=== PATIENT | female | born 1965 | race Caucasian/White ===

== ENCOUNTER 2020-08-05 09:04 | Outpatient (REF) | payer OTHER, SELFPAY ==
--- NOTE | ~2020-08-05 | CT_ITS ---
EXAMINATION: CT SINUS WITHOUT CONTRAST CLINICAL INFORMATION: Anosmia. COMPARISON: None TECHNIQUE: 2 mm thin axial and 2 mm coronal and sagittal images of maxillofacial bones/sinuses were obtained. This CT examination was performed using dose optimization techniques as appropriate, variously including the following: *Automated exposure control *Adjustment of mA and/or kV according to patient size (this includes techniques or standardized protocols for targeted exams where dose is matched to indication/reason for exam; i.e. extremities or head) *Use of iterative reconstruction technique DLP: 125 mGy-cm FINDINGS: There is normal aeration of bilateral frontal, ethmoid, maxillary and sphenoid sinuses without any air-fluid levels or mucoperiosteal thickening. Bilateral ostiomeatal complex and frontoethmoidal recesses are widely patent. The olfactory grooves are symmetrical bilaterally measuring 6 mm in depth. The cribriform plate and the kenrick moose are normal. No bony abnormality seen involving the roof of bilateral frontal and ethmoid sinuses. NASAL CAVITY/NASOPHARYNX: The nasal cavity is clear. There is no nasal septal deviation/spurring. The nasopharynx is symmetric. ADDITIONAL RELEVANT FINDINGS: No periapical disease is seen. The TMJs articulate normally. The orbits and skull base soft tissues are unremarkable. The middle ear cavities and mastoid air cells are clear. Limited evaluation demonstrates no acute intracranial findings. CT/CT sinus wo con IMPRESSION: Essentially unremarkable CT sinus exam.
== END 2020-08-05 09:05 | disposition home or self-care (01) ==
LOC: HO.CT 09:04
PROVIDERS: PCP Internal Medicine; Visit Provider Otolaryngology
DX: R43.0 Anosmia (principal)
CPT/HCPCS: 70486

== ENCOUNTER 2021-10-03 08:00 | Outpatient (REF) | payer OTHER, SELFPAY ==
--- NOTE | ~2021-10-03 | XR_ITS ---
EXAMINATION: XR KNEES, STANDING AP XR KNEE, RIGHT CLINICAL INFORMATION: Knee pain. COMPARISON: Standing AP knees 12/04/2018 and 10/20/2012; radiographs left knee 12/04/2018, 01/07/2013, 10/20/2012, 12/16/2010 TECHNIQUE: Standing AP knees is performed along with lateral and axial patella views of the right knee. FINDINGS: Right: Normal bony mineralization. No fracture, dislocation, destructive process. There is moderate suprapatellar effusion. No joint narrowing or erosive change or chondrocalcinosis. There is mild narrowing lateral patellofemoral joint with borderline lateral tilting. Left: There are old posttraumatic and postsurgical changes proximal tibia. Hardware has been previously removed. There is no acute fracture or destructive process. There are degenerative changes medial lateral knee joint compartments with borderline joint narrowing and marginal osteophytes from the femoral condyle and tibial plateau. There is no erosive change or chondrocalcinosis. XR/XR knee standing BI IMPRESSION: Right: -Moderate suprapatellar effusion. -Mild narrowing lateral patellofemoral joint with borderline lateral tilting. Left: -Old posttraumatic and postsurgical changes. Hardware previously removed. -Degenerative changes medial lateral compartments with marginal osteophytes and borderline joint narrowing.
--- NOTE | ~2021-10-03 | US_ITS ---
EXAMINATION: US VENOUS ULTRASOUND WITH DOPPLER LOWER EXTREMITY, RIGHT CLINICAL INFORMATION: Pain COMPARISON: None TECHNIQUE: Ultrasound of the deep veins is performed from the hip to the calf with compression sonography and color and pulse Doppler assessment. Spectral analysis with color-flow imaging is performed. FINDINGS: There is normal venous compression and respiratory variation and augmented flow. The visualized common femoral vein, superficial femoral vein, profunda femoral vein, popliteal vein, and the trifurcation region shows no evidence of deep venous thrombosis. There is a 3.5 x 1.1 x 2.6 cm Luz's cyst. There is a separate fluid collection seen in the medial calf measuring 4.2 x 2 x 4.1 cm questionable for a ruptured Luz's cyst. US/US venous duplex LE RT IMPRESSION: No DVT demonstrated in the right lower extremity. Luz's cyst.
--- NOTE | ~2021-10-03 | XR_ITS ---
EXAMINATION: XR KNEES, STANDING AP XR KNEE, RIGHT CLINICAL INFORMATION: Knee pain. COMPARISON: Standing AP knees 12/04/2018 and 10/20/2012; radiographs left knee 12/04/2018, 01/07/2013, 10/20/2012, 12/16/2010 TECHNIQUE: Standing AP knees is performed along with lateral and axial patella views of the right knee. FINDINGS: Right: Normal bony mineralization. No fracture, dislocation, destructive process. There is moderate suprapatellar effusion. No joint narrowing or erosive change or chondrocalcinosis. There is mild narrowing lateral patellofemoral joint with borderline lateral tilting. Left: There are old posttraumatic and postsurgical changes proximal tibia. Hardware has been previously removed. There is no acute fracture or destructive process. There are degenerative changes medial lateral knee joint compartments with borderline joint narrowing and marginal osteophytes from the femoral condyle and tibial plateau. There is no erosive change or chondrocalcinosis. XR/XR knee RT 2V IMPRESSION: Right: -Moderate suprapatellar effusion. -Mild narrowing lateral patellofemoral joint with borderline lateral tilting. Left: -Old posttraumatic and postsurgical changes. Hardware previously removed. -Degenerative changes medial lateral compartments with marginal osteophytes and borderline joint narrowing.
== END 2021-10-03 08:01 | disposition home or self-care (01) ==
LOC: HO.HOSX 08:00
PROVIDERS: Visit Provider Physician Assistant
DX: M17.0 Bilateral primary osteoarthritis of knee (principal); M79.661 Pain in right lower leg
CPT/HCPCS: 20610; 73560; 73565; 93971; 99202; J1040

== ENCOUNTER → 2022-01-12 09:13 | Outpatient (BNVA) | payer OTHER, SELFPAY | PROVIDERS: PCP Internal Medicine; Visit Provider Orthopaedic Surgery | DX: M17.0 Bilateral primary osteoarthritis of knee (principal); M71.21 Synovial cyst of popliteal space [Baker], right knee | CPT/HCPCS: 99212; J1100 ==

== ENCOUNTER 2024-08-27 13:42 | Outpatient (REF) | payer OTHER, SELFPAY ==
--- NOTE | 2024-08-27 13:48 | EMG_ITS ---
Chief complaint: Bilateral hand numbness chronic Reason for referral: Evaluate for Carpal Tunnel Syndrome Referred by: Jasbir WARREN Procedure done: Bilateral upper extremities NCS Precautions and/or limitations: Severe eczema on both hands and wrists, warmth to touch, does not appear to be infected. Needle EMG deferred. The limb temperature was monitored continuously and remained between 32-36 degrees C during the performance of the NCS. Nerve Conduction Studies Anti Sensory Summary Table ?Stim Site NR Onset (ms) Norm Onset (ms) Peak (ms) Norm Peak (ms) O-P Amp (?V) Norm O-P Amp Site1 Site2 Delta-0 (ms) Dist (cm) Herb (m/s) Norm Herb (m/s) Left Median Anti Sensory (2nd Digit) Wrist NR <3.6 >10 Wrist 2nd Digit 14.0 Right Median Anti Sensory (2nd Digit) Wrist NR <3.6 >10 Wrist 2nd Digit 14.0 Right Radial Anti Sensory (Thumb) Forearm ? 1.7 2.0 <3.1 28.2 Forearm Thumb 1.7 0.0 Left Ulnar Anti Sensory (5th Digit) Wrist ? 2.3 3.1 <3.7 22.7 >15.0 Wrist 5th Digit 2.3 14.0 61 Right Ulnar Anti Sensory (5th Digit) Wrist ? 2.5 3.1 <3.7 15.2 >15.0 Wrist 5th Digit 2.5 14.0 56 Motor Summary Table ?Stim Site NR Onset (ms) Norm Onset (ms) O-P Amp (mV) Norm O-P Amp iAmp (mV) Amp (1st) (%) Site1 Site2 Delta-0 (ms) Dist (cm) Herb (m/s) Norm Herb (m/s) Left Median Motor (Abd Poll Brev) Wrist ? 6.8 <3.9 7.7 >4.5 8.9 100.0 Elbow Wrist 4.0 18.0 45 >45 Elbow ? 10.8 7.3 8.3 94.8 Right Median Motor (Abd Poll Brev) Wrist ? 13.8 <3.9 0.8 >4.5 0.9 100.0 Elbow Wrist 6.6 18.0 27 >45 Elbow ? 20.4 0.7 0.8 87.5 Left Ulnar Motor (Abd Dig Minimi) Wrist ? 2.7 <3.0 5.0 >5 6.2 100.0 B Elbow Wrist 2.8 17.0 61 >45 B Elbow ? 5.5 6.8 8.7 136.0 A Elbow B Elbow 1.6 10.0 63 >45 A Elbow ? 7.1 6.6 8.4 132.0 Right Ulnar Motor (Abd Dig Minimi) Wrist ? 2.7 <3.0 6.0 >5 9.2 100.0 B Elbow Wrist 2.9 16.5 57 >45 B Elbow ? 5.6 5.9 9.2 98.3 A Elbow B Elbow 1.3 10.0 77 >45 A Elbow ? 6.9 5.7 8.8 95.0 FINDINGS: Right median motor nerve showed prolonged distal latency, very small amplitude and slow conduction velocity. Left median motor nerve showed prolonged distal latency, normal amplitude and normal conduction velocity. Bilateral median sensory nerves absent response. All other nerves tested were within normal. IMPRESSION: 1. This is an abnormal nerve conduction study. 2. There is electrodiagnostic evidence for right severe and left moderate-severe median neuropathy at the wrist, consistent with carpal tunnel syndrome. 3. There is no electrodiagnostic evidence for ulnar neuropathy. Thank you for your kind referral. Tatianna Albarran MD, EREN Board Certified, [place] Board [employer] and Rehabilitation (ABPMR) Board Certified, [place] Board of Electrodiagnostic Medicine (ABEM) CODIN [phone] MTDD
--- OUTSIDE RECORDS SUMMARY | 2024-08-27 16:45 | XMS_ITS | Encounter Summary ---
Author Organization [employer] Address [address] [facility] [address] [place] [address] Care Team Providers Care On Site Coordinator Name Role Phone Dea Garcia OD Unavailable Inactive/Transferred Primary Care Provider Unava ilable Reason for Visit * Reason Comments Med Refill Encounter Details Date Type Department Care Team (Late st Contact Info) Description 08/20/2024 Refill [facility] [address] [place] [address] Sharon Malone FNP [address] [place] [address] Resistant hypertension; Dizziness Social History Tobacco Use Types Packs/Day Years Used Date Smoking Tobacco: Every Day Cigarettes 0.5 41.6 Started: 1983 Passive Smoke Exposure: Current Smokeless Tobacco: Never Comments:Smoking for about 4 0 years 1 2 24 current URI advised not to smoke especially while ill will delay recovery and possibly worsen symptoms Alcohol Use Standard Drinks/Week Comments Yes 0 (1 standard drink = 0.6 oz pur e alcohol) Once in a blue begum Alcohol Answer Date Recorded How often do you have a drink containing alcohol ? 0 04/18/2023 How many drinks containing a lcohol do you have on a typical day when you are drinking? 0 04/18/2023 How often do you have six or more drinks on one occasion? 0 04/18/2023 Housing Stability Answer Date Recorded What is your housing situation today? I have atul abdi 02/27/[address] you li ve. Do you have problems with any of the following? None of the above 02/27/2023 Food Insecurity Answer Date Recorded Within the past 12 months, y ou worried that your food would run out before you got money to buy more: Never True 02/27/2023 Within the past 12 months,th e food you bought just didn't last and you didn't have enough money to get more: Never True Transportation Answer Date Recorded In the past 12 months, has l ack of transportation kept you from medical appts, meetings, work or from getting things needed for daily living? No 02/27/2023 Intimate Partner Violence Answer Date R ecorded Within the last year, have y ou been afraid of your partner or ex-partner? 2 04/18/2023 Within the last year, have y ou been humiliated or emotionally abused in other ways by your partner or ex-partner? 2 Within the last year, have y ou been kicked, hit, slapped, or otherwise physically hurt by your partner or ex-partner? 2 04/18/2023 Within the last year, have y ou been raped or forced to have any kind of sexual activity by your partner or ex-partner? 2 04/18/2023 Utilities Answer Date Recorded In the past 12 months, has t he electric, gas, oil or water company threatened to shut off services in your home? No 02/27/2023 Depression Answer Date Recorded Patient Health Questionnaire-2 Score 0 02/27/2023 Comments No Sex and Gender Information Value Date Recorded Sex Assigned at Female 03/12/2022 10:28 AM EDT Legal Sex Female 10:28 AM EDT Gender Identity Female 03/29/2022 3:43 PM EST Sexual Orientation Straight 02/27/2023 5: 23 PM EDT Occupation Industry Job Start Date Job End Date diasabled Not on file Not on file Not on file documented as of this encounter Miscellaneous Notes * Telephone Encounter - Flavio Winston CMA - 08/20/2024 8:03 AM EDT Patient transferred care to another practice documented in this encounter Plan of Treatment Not on file documented as of this encounter Visit Diagnoses Diagnosis Resistant hypertension Dizziness Dizziness and giddiness documented in this encounter Care Teams On Site Coordinator Relationship Specialty Start Date End Date Inactive/Transferred PCP - General 07/13/24 Dea Garcia OD [address] [place] [id number] Optometry 04/13/22 documented as of this encounter
--- OUTSIDE RECORDS SUMMARY | 2024-08-27 16:45 | XMS_ITS | Encounter Summary ---
Author Organization [employer] Address [address] [facility] [address] [place] [address] Care Team Providers Care Gas Plant Dispatcher Name Role Phone Dea Garcia OD Unavailable Sharon Malone [employer] OPERATOR Primary Care Provider [phone] Inactive/Transferred Primary Care Provider Unava ilable Encounter Details Date Type Department Care Team (Late st Contact Info) Description 08/09/2023 Telephone [facility] [address] [place] [address] Sondra Nazario, RN Social History Tobacco Use Types Packs/Day Years [...] the past 12 months, has t he [employer] gas, oil or water [employer] threatened to shut off services in your [...] encounter Miscellaneous Notes * Telephone Encounter - Sondra Nazario RN - 08/09/2023 10:20 AM EDT New orders faxed to [phone] * Telephone Encounter - Sondra Nazario RN - 08/09/2023 8:48 AM EDT Remedios from [facility] radiology called. Pt has an order for CT chest w/ and w/out contrast and CT abdomen pelvis w/ and w/out contras They don't do those. Needs a new order for both to say with contrast only. Would like them faxed back to [phone] any Routing to covering pcp documented in this encounter Plan of Treatment Not on file documented as of this encounter Visit Diagnoses Not on filedocumented in this encounter Care Teams Gas Plant Dispatcher Relationship Specialty Start Date End Date Sharon Malone FNP [address] [facility] [place] [address] PCP - General Family Medicine 08/03/22 07/12/24 Inactive/Transferred PCP - General 07/13/24 Dea Garcia OD [address] [place] [address] Optometry 04/13/22 documented as of this encounter
--- OUTSIDE RECORDS SUMMARY | 2024-08-27 16:45 | XMS_ITS | Clinical Summary ---
Author Organization [employer] Address [address] [place] [address] [address] [place] [address] Care Team Providers Care Director Of Surgery Name Role Phone Dea Garcia OD Unavailable Inactive/Transferred Primary Care Provider Unava ilable Allergies Active Allergy Reactions Criticality Noted Date Comments Azithromycin Itching 04/13/2022 Sumatriptan Swelling,Other High 04/13/2022 Tongue swelling, heart pounding, chest pains Lactose 02/27/2023 Other reaction(s): GI upset Latex Rash Low 04/13/2022 Penicillins Rash Low 04/13/2022 Medications aspirin 81 MG EC tablet Take by mouth in the morning. Active buPROPion XL (Wellbutrin XL) 300 MG 24 hr tablet Take 300 mg by mouth in the morning. 02/01/20 23 Active Ascorbic Acid (vitamin C) 1000 MG tablet Take 1,000 mg by mouth. 11/30/19 20 Active Colloidal Oatmeal (Eucerin Eczema Relief) 1 % cream See Instructions, Topically to affected area as needed for dry cracked skin, # 15 Gm, 0 Refills, Maintenance, 03/17/23 17:17:00 EST, [facility]/pharmacy #[id number], Partial fill upon patient request if the prescription is for a schedule II opioid drug., Topically... 03/17/20 23 Active FLUoxetine (PROzac) 40 MG capsule Take 40 mg by mouth in the morning. rx'd by Matt Cheney Psychiatrist Active lidocaine (Xylocaine) 2 % solutionIndication s:Mouth ulcer Swish 10mls in mouth twice daily for pain relief 100 mL 1 08/26/19 24 Active loratadine (Claritin) 10 MG tabletIndications: Allergy, subsequent encounter TAKE 1 TABLET BY MOUTH EVERY DAY IN THE MORNING 90 tablet 3 09/17/19 24 Active losartan (Cozaar) 50 MG tabletIndications: Essential hypertension Take 1 tablet along with the 25 mg losartan tablet for a combined dosage of 75 mg once a day 90 tablet 1 09/23/19 24 Active omeprazole (PriLOSEC) [address] capsuleIndications :Gastroesophageal reflux disease with esophagitis, unspecified whether hemorrhage Take 1 capsule (20 mg) by mouth before breakfast and before evening meal. Do not crush or chew. 180 capsule 3 12/23/19 24 025 Active chlorhexidine (Peridex) 0.12 % solution RINSE MOUTH WITH 15ML (1 CAPFUL) FOR 30 SECONDS IN MORNING AND EVENING AFTER BRUSHING, THEN SPIT 12/20/19 24 Active ibuprofen 600 MG tablet TAKE 1 TABLET BY MOUTH EVERY 6 TO 8 HOURS NEEDED 12/20/19 24 Active buPROPion XL (Wellbutrin XL) 150 MG 24 hr tablet Take 150 mg by mouth in the morning. Pt takes in conjunction with 300 mg 01/30/20 24 Active fluticasone (Flonase) 50 MCG/ACT nasal spray SPRAY 2 SPRAYS INTO EACH NOSTRIL IN THE MORNING SHAKE GENTLY 48 mL 1 03/10/20 24 Active triamcinolone (Kenalog) 0.025 % ointment Apply 1 Application. topically Once per day. 15 g 04/22/20 24 Active atorvastatin (Lipitor) 10 MG tabletIndications: Hyperlipidemia, unspecified hyperlipidemia type TAKE 1 TABLET BY MOUTH ONCE DAILY 90 tablet 3 04/24/20 24 Active butalbital-acetami nophen-caffeine 50-325-40 MG tabletIndications: Intractable migraine without status migrainosus, unspecified migraine type TAKE 1 TABLET BY MOUTH TWICE A DAY NEEDED MAY CAUSE DROWSINESS MAX 20 TABS IN 30 DAYS NOT COVERED 20 tablet 04/24/20 24 Active loperamide (Imodium) 2 MG capsuleIndications :Diarrhea, unspecified type TAKE 1-2 CAPS BY MOUTH IF NEEDED IN THE MORNING, AT NOON, IN EVENING AND AT BEDTIME FOR DIARRHEA USE LOWEST DOSE. MAX 8 CAPS/DAY 240 capsule 04/24/20 24 Active acetaminophen (Tylenol 8 Hour) 650 MG ER tabletIndications: Chronic neck pain Take 1 tablet (650 mg) by mouth every 8 (eight) hours if needed for mild pain. 30 tablet 05/22/19 25 Active amLODIPine (Norvasc) 5 MG tabletIndications: Resistant hypertension Take 1 tablet (5 mg) by mouth Once per day. 90 tablet 05/22/19 25 025 Active cholecalciferol (Vitamin D3) 25 MCG (1000 UT) tabletIndications: Vitamin D deficiency Take 1 tablet (1,000 Units) by mouth in the morning. 90 tablet 3 05/22/19 25 Active metoprolol tartrate (Lopressor) 25 MG tabletIndications: Dizziness Take 0.5 tablets (12.5 mg) by mouth 2 times daily. 90 tablet 05/22/19 25 Active losartan (Cozaar) 25 MG tabletIndications: Essential hypertension Take 1 tablet (25 mg) by mouth Once per day. Take with 50 mg tablet to equal 75mg daily 90 tablet 07/18/19 25 026 Active Active Problems Problem Noted Date Diagnosed Date Drug reaction 03/06/2024 Assessment & Plan (03/06/2024 9:33 PM EDT): Pt thinks the increase in dose of her wellbutrin from 300 to 450 mg daily caused her an episode of lightheadedness, dizziness while driving, soon after her psych prescriber Radha Sears increased the dose of that medication. However she has no dizziness or lightheadedness or other similar concerns tonight during our visit. Urvashi Khanna checked her bp and pulse at [facility]'s visit and it is 125/67 with a pulse of 64. No palpitations, no lightheadedness, no dizziness, no chest pain nor SOB. Encouraged Urvashi Khanna to call her wellbutrin prescriber right away to report her concerns and discuss. Stay well hydrated with water, monitor bp and pulse daily and present to ER if any red flag symptoms prior to talking with your psych med prescriber. Urvashi agrees to this plan and has no further questions or concerns at visit conclusion. Uncontrolled hypertension 12/23/2023 Overview (12/23/2023): Pt with home readings reflecting poor bp control accompanied by recurrent migraine like headaches. Agrees to evaluation in ER [facility] and is having family take her now to [place]. Given her history of leaving ER AMA (May 2023) strongly advised Urvashi Khanna to follow advice of her providers at the ER [facility] and stay for complete evaluation including admission if they recommend for her safety and wellbeing. Lung nodule seen on imaging study 08/17/2023 Assessment & Plan (08/17/2023 12:00 PM EDT): Pt coming in today to get lung sounds checked/check O2 sat, etc. Pt had telehealth with [facility] yesterday who reviewed the results of the pt's CT with her. There was a minimal groundglass found in the right upper lobe as well as some nodules. Pt denies any cough, CP, shortness of breath, diff breathing. States she has not had any of those complaints. PE benign. Lung sounds clear to auscultation bilaterally in all alcantara. Discussed that we will continue with screening CT scans every 6m-1y as needed. Stress due to illness of family member Assessment & Plan (08/16/2023 5:10 PM EDT): Pt reports mother is sick with demential requiring daily care and support this is a major source os stress in patients life currently, her brother helps as well. Encouraged pt to reestablish with elderly services for assistance. History of dental abscess 08/16/2023 Overview (09/25/2023): Schedule for tooth abstraction Saturday. Assessment & Plan (08/16/2023 5:07 PM EDT): History of abscess to R upper molar reports has had multiple appointments with dental which were canceled. Needs to have this tooth removed. Reports occasional pain to site. Is concerned this may be origin of recent temp 99F. No report of incr swelling. Advised call dental to schedule follow up [facility]. Oral lesion 08/16/2023 Overview (09/25/2023): Engaged with oral surgeon - biopsy scheduled for 10/03/23. Assessment & Plan (08/17/2023 11:30 AM EDT): Ongoing. States she has had it for awhile. Cannot pinpoint an exact time, but states it is definitely longer than weeks. She states initially it was small and now it is bigger and sometimes interfering with her eating/chewing. She has bitten it once or twice but it did not bleed. States she has not done anything for it. Valtrex bid for one day. Discussed that likely it is a cold sore and she will not need more tx than the one day. Reach out to us if it does not get better. Assessment & Plan (08/17/2023 11:29 AM EDT): >>ASSESSMENT AND PLAN FOR MOUTH LESION WRITTEN ON 08/16/2023 5:02 PM BY ROMY AVALOS Hx tobacco use. Reports known lesion in mouth recently changed, increased in size and painful. Described as round and red with white bumps. Please follow up with in person visit tomorrow to have provider evaluate this lesion and determine if referral to specialist is indicated. Worsening headaches 08/13/2023 Overview (09/25/2023): Stable now, improved since BP has been under better control. Has appointment with neurology at the end of October. Assessment & Plan (12/23/2023 7:26 PM EDT): States has not seen neurology again and is concerned about her headaches. Note in chart from neurology in May 2023 mentions trial of CGRP meds if needed but patient thinks the headaches have worsened mostly due to her blood pressure being high again over the last few weeks. Also just had oral surgery on Saturday to remove a suspicious and growing inner lower lip lesion and is still smoking despite oral surgeon advice not to do so. Discussing importance of not smoking after oral surgery and effect on her vessels and bp and propensity for headaches. Given severity of headaches and persistently elevated bps in the 160s to 180s over low 100s agrees with evaluation at ER now and is having family member take her to [place]. As she left AMA from a previous ER visit cautioned Matthieu to please follow advice of treating providers sandra in the ER for her safety and wellbeing. Matthieu agrees to plan and has no further questions/concerns at tonight's visit. Weight loss, unintentional 08/13/2023 Assessment & Plan (08/16/2023 4:59 PM EDT): On going diarrhea with unintentional weight loss. Scheduled colonoscopy 09.12.23. Needs to schedule with GI. Assessment & Plan (08/13/2023 1:52 PM EDT): 08/03 Chest/abd/pelvis ct without adenopathy. No suspicious mass. Minimal ground glass seen in right upper lung, can be seen with inflammation/infection. Enlarged main pulmonary artery. Nonspecific can be seen with underlying pulmonary htn. Discussed above results. Pt denies cough/on going cp/trouble breathing/fevers which could indicate infection in lung. Rec follow up in person as scheduled with PCP 10/29/23 for recheck, may consider repeat chest ct in 3 mo to confirm resolution of abnormal finding in lung. Diarrhea 08/13/2023 Overview (10/17/2023): Images from the original note were not included. 10/2023 [facility] Colorectal Sx: Assessment & Plan (08/16/2023 5:03 PM EDT): See weight loss . Assessment & Plan (08/13/2023 1:55 PM EDT): Since rectal prolapse surgery 08/2022. Bms have been watery, incontinence, and now having stool leaking at night. Has been taking Imodium - about 10 pills per day. Has to stool immediately after eating, sometimes during the meal. FU w/ Dr. Marvin 08/02/23, to be scheduling colonoscopy [facility]. Diabetes due to undrl condition w oth diabetic n euro comp 07/25/2023 Overview (09/25/2023): Lab Results Component Value Date HGBA1C 5.4 02/27/2023 Lab Results Component Value Date HGBA1C 5.5 09/25/2023 Diet controlled. A1c at goal. On Statin and ASA. Not on ACEI, but is on ARB. Mild concentric left ventricular hypertrophy 02/2024 Overview (08/13/2023): Images from the original note were not included. Seen by [facility] Cardiology. Echo 06/18/23 Is ordering 14 day monitor, will be on starting 08/07/23. Sweating abnormality 06/06/2023 Dizziness 06/06/2023 Overview (06/06/2023): On Metoprolol. Discussed options - Will trial lower dose due to dizziness symptoms. Palpitations 06/06/2023 Overview (08/13/2023): Engaged with [facility] Cardiology. Will be starting 14 day holter on 08/07/23. Bradycardia 06/06/2023 Overview (06/19/2023): As above. Eczema 04/18/2023 Overview (04/18/2023): Around eyes and wrists. Improving with moisturizer - Aveeno, Neutrogena, and Colloidal Oatmeal cream. Reviewed skin care. Call clinic if S/S fail to resolve or worsen in any way. Acute otitis media 03/21/2023 Overview (03/21/2023): Ear pain x few weeks. Exam consistent with AOM. Discussed treatment options - multiple allergies. Will treat with Cefpodixime. Reviewed medication, administration, and potential side effects. Myalgia 03/21/2023 Allergies 03/18/2023 Assessment & Plan (03/18/2023 4:31 PM EST): Ongoing. States she is not taking [facility] anymore, thinks she has an allergy. Not noting any specific allergic type symptoms when taking it. Wants to get back on Loratadine; states she thinks the redness around her eyes is due to allergies; it looks eczematous in nature. Allergic conjunctivitis 02/27/2023 02/28/20 23 Anxiety 02/27/2023 02/27/2023 Overview (08/13/2023): On Wellbutrin and Prozac. Always had depression - childhood trauma. Had depression and anxiety attacks. Missing a lot of work due to these symptoms. Moved to [place] for 's job, developed agoraphobia - could not leave the house. Tried on multiple medications. Was on Abilify - just stopped it a few months ago due to involuntary movements. Has been on Wellbutrin and Prozac for years. Was in a day program in the past. Has counselor - Evelyn, unsure of office. Has Prescriber - Justin Cheney. Mom has dementia - has been very stressed lately. Discussed stress management - encouraged to consider 5 minute meditation daily (can use guided meditations on YouTube). Will continue to monitor. Chronic neck pain 02/27/2023 02/27/2023 Overview (03/25/2023): Acetaminophen 650mg not helping. Discussed options - advised to trial topical cream such as IcyHot or BenGay. Dyspnea on exertion 02/27/2023 02/27/2023 Overview (06/21/2023): Images from the original note were not included. Evaluated in ER 06/06/23 - admission recommended and left AMA in favor of outpatient workup. Echo on 06/18/23. Discussed current symptoms and concerns. Will repeat labs. Discussed when to go to ER - discussed VERY low threshold for return to ER as symptoms are significantly worrisome. Will likely refer to cardiology if patient not admitted and seen by cardiology inpatient. Assessment & Plan (06/06/2023 6:33 PM EST): Pt reports has been much worse since change in bp med (metoprolol), this clinician noted elevated BNP on recent labs drawn 05 29 23 (results in chart) and that pt is pending an outpatient ECHO already ordered by her PCP. Pt states is worried, feel awful , reporting other symptoms including exacerbation of her chronic headaches/migraines with CHANG pain of 9 on 0-10 PAS. No lightheadedness/dizziness or syncopal/prescyncopal episodes, but see other diagnoses (palpitations) as well pt is a 58 year old woman, current smoker (40 pk year hx) and symptoms warranting acute setting evaluation and pt agrees. Will bring all her medications in original rx bottles with her tonight, driving her, to nearest ER ([facility]) and call the health center when she is discharged to schedule ER followup visit. Gastroesophageal reflux disease 02/27/2023 02/27/2023 Hyperlipidemia 02/27/2023 02/27/2023 Leukocytosis 02/27/2023 02/27/2023 Migraine 02/27/2023 02/27/2023 Overview (09/16/2023): Images from the original note were not included. Hasn't had migraine in 16 years - then started in August 2022 after stopping Abilify (stopped due to involuntary movements) and having continuous migraine since that time. Last PCP tried everything - Magnesium, Vitamin B. 02/18 Seen by Neurology - Rx Elavil and Topamax. Never took medication. Migraines significantly improved after increasing Metoprolol. Had to decrease Metoprolol s/t bradycardia. Migraines have been worsening since decrease. Added Flexeril and Reglan PRN. Feels migraines have improved with these changes. Will continue current plan at this time. Neurology consult 03/04 [facility]. Assessment & Plan (08/17/2023 11:32 AM EDT): Ongoing. Did have telehealth with [facility] last night and this was discussed again. Continued BP control with use of Tylenol, Advil, and Fioricet as needed. Pt states she is doing better today and it is not bothering her. Discussed increased water intake, staying hydrated. Assessment & Plan (08/16/2023 4:58 PM EDT): Endorsing recurrence of headaches over the past few weeks. Typical headache starts at base of head in neck wraps around bilateral to eyes. Woke the other night with headache to L eye and severe, improved with drinking Gatorade, went back to bed and woke with typical pattern of headache. Reports today took tylenol and Advil which has helped with pain. Reports its not as bad, headache is currently consistent with previous headaches. Reports + noise and photosensitivity. Denies current changes in vision. Denies current temporal pain. Temp has been 99F, hasn't gone up to 100.4 or higher. Referral placed for second opinion from neurology at new locations. Pt reports the previous neurologist that she saw this fall wanted to start her on antidepressants, she prefers not to be on these meds given previous experiences. Today advised continue tylenol and Advil PRN . Discussed flexeril may help with tension headaches. Discussed Fioricet for PRN use not regularly. Encourage stress reduction, sleep, hydration, nutrition. Return precautions reviewed ie- seek care in person for worsening/severe symptoms including not limited to fevers 100.4 or higher/worsening or severe CHANG or neuro symptoms. Osteoarthritis of knee 02/27/2023 Overview (02/27/2023): Right Rash of hand 02/27/2023 02/27/2023 Overview (03/25/2023): Rash on hands/wrists, and around eyes. Was told in ER it is Eczema. Reviewed skin care at length. Advised to stop all eye makeup - throw away in case of bacteria, and do not use eye makeup until rash around eyes has cleared. Use products that are unscented and for sensitive skin. Moisturize twice daily and after every shower/bath. Use lukewarm water and limit shower to 10 minutes. Pat dry. Suggested daily face wash - Cetaphil a good option. Use moisturizer such as Eucerin. Can also use Vaseline around eye area (careful to avoid in eyes) as needed. Rectal prolapse 02/27/2023 02/27/2023 Overview (09/25/2023): Dr. Jovel - Colorectal surgeon at [facility]. On Prilosec and Pepcid for GERD. Has diarrhea and has to take Imodium - was taking about 10 pills per day, now only taking 4 pills. Had rectal prolapse surgery 08/2022. Having some bowel incontinence and has to eat small meals. Has follow up with GI at the end of December. Severe obesity (BMI 35.0-39.9) with comorbidity 02/27/2023 02/27/2023 Tobacco user 02/27/2023 02/27/2023 Vitamin D deficiency 02/27/2023 02/27/2023 Essential hypertension 04/13/2022 Overview (09/25/2023): BP Readings from Last 4 Encounters: 09/25/23 138/84 08/17/23 (!) 141/83 07/25/23 130/84 07/11/23 127/80 BP at goal. Dx at age 21. It runs in my family . On Amlodipine 5mg, Losartan 75mg, and Metoprolol 25mg BID - none of the medications are optimized. Will continue current treatment plan at this time. Assessment & Plan (08/17/2023 11:33 AM EDT): Ongoing. Pt continues on current medication regimen as discussed in 2 most recent visits this week. Discussed to continue taking medications as prescribed. Follow up with PCP for med optimization. Discussed taking BP readings at home. Resolved Problems Problem Noted Date Diagnosed Date Resolved Date Heavy breathing 06/06/2023 08/13/2023 Overview (06/06/2023): Recent bronchitis. COVID and flu negative in office today. LS CTAB today, Neuro exam normal. Occurring with sweating and lightheadedness. EKG done today - normal. Will check labs. Reviewed when to call clinic, when to go to ER. Bronchitis 05/14/2023 08/13/2023 Assessment & Plan (05/14/2023 8:10 PM EST): Pt call received from service as message reporting emergency - returned call and confirmed no red flag symptoms required acute care setting evaluation; rather pt reports persistence of symptoms which were reported and treated at her 05 10 23 in person visit with Dr. Hollis and now states since her fever has persisted and having some diarrhea when she eats and some nausea would like antibiotic. Is a current smoker and has tolerated doxycycline well in past, confirmed she has adequate supply of zofran on hand. Advised correct use of the doxy, stay well hydrated and nourished (broths, water, gatorade, yogurts/soups). States has been having some nausea, no vomiting but yes some diarrhea when she eats since 05/10/23. If unable to eat, stay hydrated and still having diarrhea despite taking the zofran and doxycycline advised ER evaluation, is using tylenol prn fever as already rx'd. Note she was negative at 12 29 23 visit for COVID 19, flu and strep but is aware this could change if symptoms have persisted. Diarrhea of presumed infectious origin 03/18/2023 09/25/2023 Assessment & Plan (03/18/2023 4:37 PM EST): Diagnosed with a viral infection at [facility] yesterday afternoon. She went in for 3d hx of feeling sick with coughing, diarrhea, sore throat, and rhinorrhea. She was found to be afebrile, without leukocytosis, no anemia, grossly normal chem panel, and a CXR without acute abnormalities. She was given IVF with anti-nausea medications with good effect. She was given Tylenol, Zofran, and an eczema cream for her dry cracking skin on her hands as well as around her eyes. We discussed with about the importance of fluid intake, starting small meals that are bland, and Zofran for nausea. We prescribed Loperamide for her for the diarrhea. We discussed the importance that as soon as she has some form of formed stools to stop the medication. We discussed that she can use the eczema cream on her hands and on her face, avoiding her eyes/lashes. We discussed returning to the ER if she has any dizziness, lightheadedness, continued vomiting/diarrhea, or abdominal pain. Encounters Date Type Department Care Team Description 08/20/[address] [id number] Sharon Malone FNP Resistant hypertension; Dizziness 08/19/[address] [address] Sharon Malone FNP Allergy, subsequent encounter 08/03/[address] [address] Sharon Malone FNP Essential hypertension 08/03/[address] [address] Sharon Malone FNP Essential hypertension 07/17/2024 [facility] [address] [place] [address] Sharon Malone, SENIOR BACKUP ADMINISTRATOR Essential hypertension 07/14/2024 Refill [facility] [address] [facility] [place] [address] Sharon Malone, SENIOR BACKUP ADMINISTRATOR Allergy, subsequent encounter 07/02/2024 Refill [facility] [address] [place] [address] Sharon Malone, SENIOR BACKUP ADMINISTRATOR Chronic neck pain from Last 3 Months Immunizations Name Administration Dates Next Due Influenza, IIV3, injectable 02/25/2012, 2 Pfizer Covid-19 Vaccine 12+ roddy-sucrose (Mic Rivera ap) 10/05/2021 Tdap 07/02/2011 Family History Medical History Relation Name Comments Cataracts Mother Relation Name Status Comments Mother Mother's Brother Glaucoma Other Social History Tobacco Use Types Packs/Day Years Used Date Smoking Tobacco: Every Day Cigarettes 0.5 41.6 Started: 1983 Passive Smoke Exposure: Current Smokeless Tobacco: Never Tobacco Cessation:Ready to Q uit: Not Asked; Counseling Given: Not Answered Comments:Smoking for about 40 years 1 2 24 current URI advised [...] is your housing situation today? I have atulhiral abdi 02/27/[address] you [...] file Not on file Not on file Last Filed Vital Signs Vital Sign Reading Time Taken Comments Blood Pressure 125/67 03/06/2024 6:47 PM EDT Pulse 64 03/06/2024 6:47 PM EDT Temperature 36.8 ??C (98.3 ??F) 09/25/2023 10:18 AM E DT Respiratory Rate 16 07/25/2023 10:18 AM EDT Oxygen Saturation 98% 09/25/2023 10:18 AM EDT Inhaled Oxygen Concentration - - Weight 78 kg (172 lb) 12/23/2023 6:37 PM EDT Height 154.9 cm (5' 1 ) 12/23/2023 6:37 PM EDT Body Mass Index 32.5 12/23/2023 6:37 PM EDT Plan of Treatment Health Maintenance Due Date Last Done Comments CT Colonography 1967 Colonoscopy 1967 Colorectal Cancer Screening 1967 FIT DNA/Cologuard 1967 FIT 1967 FOBT 1967 Sigmoidoscopy 1967 Diabetes: Foot Exam 1977 Alcohol/Substance Use Screening 1979 Diabetes: Urine Protein Screening 1986 Hepatitis B Vaccines (1 of 3 - 19+ 3-dose series) 1986 Pneumococcal Vaccine: 50+ Years (1 of 2 - PCV) 1986 Lung Cancer Screening 2017 Zoster Vaccines (1 of 2) 2017 DTaP/Tdap/Td Vaccines (2 - Td or Tdap) 07/02/2021 07/02/2011 COVID-19 Vaccine ( season) 2024 10/05/2021, 05/27/2021, 09/27/2020, Additional history exists Influenza Vaccine (#1) 2024 02/25/2012, 2011 Depression Screening 02/28/2024 02/27/2023, 02/28/20 23 Lipid Panel 02/28/2024 02/27/2023 SDOH Screening 02/28/2024 02/27/2023 Diabetes: Hemoglobin A1C 03/27/2024 09/25/2023, 02/10 Tobacco Screening 03/06/2025 03/06/2024 Eye Exam 04/02/2025 04/02/2023, 03/14, 04/02/2023, Additional history exists Mammogram 12/08/2025 12/09/2023 RSV Patients and Patients Aged 60 years or older (1 - 1-dose 75+ series) 2042 HIV Screening Completed 02/27/2023 Hepatitis C Screening Completed 02/27/2023 HIB Vaccines Aged Out No longer eligi ble based on patient's age to complete this topic HPV Vaccines Aged Out No longer eligi ble based on patient's age to complete this topic Hepatitis A Vaccines Aged Out No long er eligible based on patient's age to complete this topic IPV Vaccines Aged Out No longer eligi ble based on patient's age to complete this topic Meningococcal Vaccine Aged Out No filemon fish eligible based on patient's age to complete this topic RSV under 20 months Aged Out No longe r eligible based on patient's age to complete this topic Rotavirus Vaccines Aged Out No longer eligible based on patient's age to complete this topic Procedures Procedure Name Priority Date/Time Associated Diagnosis Comments BI MAMMOGRAM SCREENING TOMOSYNTHESIS BILATERAL Routine 12/09/2023 10:37 AM EDT POCT GLYCOSYLATED HEMOGLOBIN (HGB A1C) Routine 09/25/2023 10:41 AM EDT 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) HEPATITIS C ANTIBODY W/RFLX HCV QUANT PCR AND GENOTYPE Routine 02/27/2023 3:43 PM EDT Screen for STD (sexually transmitted disease) HIV ANTIBODY/ANTIGEN, 4TH GENERATION Routine 02/27/2023 3:43 PM EDT Screen for STD (sexually transmitted disease) LIPID PANEL, STANDARD Routine 02/27/2023 3:43 PM EDT Severe obesity (BMI 35.0-39.9) with comorbidity (CMS/HCC) from Last 3 Months or Most Recently Relevant to Health Maintenance Results * BI Mammogram Screening Tomosynthesis Bilateral (12/09/2023 10:37 AM EDT) Anatomical Region Laterality Modality Breast Bilateral Mammography 12/09/2023 10:3 7 AM EDT Narrative 12/09/2023 4:17 PM EDT PROCEDURE: MM Digital Mammo Screening INDICATION: Screening for breast cancer. No known palpable abnormalities. COMPARISON: Prior mammograms most recently dated 11/30/2022. TECHNIQUE: Full-field digital CC and MLO 3D tomosynthesis images of both breasts were acquired. Computer-aided detection (CAD) was utilized in the interpretation of this study. DENSITY: There are scattered areas of fibroglandular density. FINDINGS: No suspicious masses, suspicious microcalcifications, or areas of architectural distortion are seen in either breast to suggest malignancy. IMPRESSION: No mammographic evidence of malignancy. RECOMMENDATION: Annual mammographic screening BI-RADS: 1 (Negative) Lay letter mailed to patient WSN: [id number] Ordering Physician: Sharon Malone Dictated By: ?Melissa Kim MD Dictated Date/Time: ?12/09/23 4:14 pm Reviewed By: ?Melissa Kim MD Signed By: ? Melissa Kim MD Signed Date/Time: ? 12/09/23 4:14 pm Transcribed By: ? CSB Exotic Dancer Date/Time: ? 12/09/23 4:12 pm Birads: Procedure Note Donotuseinterpreter, Image - 12/09/2023 PROCEDURE: MM Digital Mammo Screening INDICATION: Screening for breast cancer. No known palpableabnormalities. COMPARISON: Prior mammograms most recently dated 11/30/2022. TECHNIQUE: Full-field digital CC and MLO 3D tomosynthesis images of bothbreasts were acquired. Computer-aided detection (CAD) was utilized in theinterpretation of this study. DENSITY: There are scattered areas of fibroglandular density. FINDINGS: No suspicious masses, suspicious microcalcifications, or areasof architectural distortion are seen in either breast to suggestmalignancy. IMPRESSION: No mammographic evidence of malignancy. RECOMMENDATION: Annual mammographic screening BI-RADS: 1 (Negative) Lay letter mailed to patient WSN: [id number] Ordering Physician: Sharon Malone Dictated By: Melissa Kim MD Dictated Date/Time: 12/09/23 4:14 pm Reviewed By: Melissa Kim MD Signed By: Melissa Kim MD Signed Date/Time: 12/09/23 4:14 pm Transcribed By: CSB Exotic Dancer Date/Time: 12/09/23 4:12 pm Birads: Sharon Smallcinthya [facility] IMG BI PROCEDURES Final Result * POCT glycosylated hemoglobin (Hgb A1c) (09/25/2023 10:41 AM EDT) Hemoglobin A1C 5.5 4.0 - 6.0 % Blood Capillary blood specimen / Unknown 09/25/2023 10:41 AM EDT Sharon Malone [facility] POINT OF CARE TEST ENTER/EDIT OR DERABLES Final Result * HIV Antibody/Antigen, 4th Generation (02/27/2023 3:43 PM EDT) Result 4th Gen HIV Antibody Antigen NEGATIVE (NEG) [facility] Comment: Negative for antibodies to HIV 1 and HIV 2 and P24 antigen. Reference range: Negative Additional note: Written patient authorization is required for each separate release of this test result. This test was performed on the BlueYield immunoassay system. Testing performed or reported by [facility], a Service of [facility], [address] [place] [address] Singh Owens MD, Technical Marketing Consultant [facility]# [id number] Blood 02/27/2023 3:43 PM EDT 02/27/2023 3:47 PM EDT Sharon Smallcinthya [facility] BLOOD ORDERABLES Final Resul t [facility] [address] [place] [address] * Hepatits C Antibody w/Reflex HCV Quant PCR and Genotyping (02/27/2023 3:43 PM EDT) Pathologist [facility] Hepatitis C Virus Ab, Serum NEGATIVE (NEG) [facility] Comment: Reference range: Negative This test was performed on the [employer] Drying Tunnel Operator immunoassay system. Testing performed or reported by [facility], a Service of [facility], [address] [place] [address] Singh Owens MD, Technical Marketing Consultant CLIA# [id number] 02/27/2023 3:43 PM EDT 02/27/2023 3:47 PM EDT Sharon Malone [facility] BLOOD ORDERABLES Final Resul t Performing Organization Address [facility] Co de Phone Number [facility] [address] [place] [phone] * (ABNORMAL) Lipid panel (02/27/2023 3:43 PM EDT) Cholesterol, Total 208(H) (<200) MG/DL [facility] Triglyceride (mg/dL) in Serum/Plasma 121 (<150) MG/DL [facility] HDL Cholesterol 65 (>39) MG/DL [facility] LDL Cholesterol, Calculated 119 (0-130) MG/DL [facility] Non HDL Chol. (LDL+VLDL) 143 (<160) MG/DL [facility] Comment: Testing performed or reported by [facility], a Service of [facility], [address] [place] [address] Singh Owens MD, Technical Marketing Consultant [facility]# [id number] Blood Venous blood specimen / Unknown 02/27/2023 3:43 PM EDT 02/27/2023 3:47 PM EDT Shraon Malone [facility] BLOOD ORDERABLES Final Resul t Performing Organization Address [facility] Co de Phone Number [facility] [address] [place] [phone] from Last 3 Months or Most Recently Relevant to Health Maintenance Insurance [facility] Member Subscriber Plan / Payer (Ef fective 2018-Present) Name:Urvashi Hernandez Relation to Subscriber:Self Name:Urvashi Hernandez Ann Payer ID:Not on file Group ID:[id number] Type:Not on file Address: [address] [facility] Member Subscriber Plan / Payer ( fective 2018-Present) Name:Alana Urvashi Khanna Relation to Subscriber:Self Name:AlUrvashi perez Ann Payer ID:Not on file Group ID:[id number] Type:Not on file Address: [address] Care Teams Director Of Surgery Relationship Specialty Start Date End Date Inactive/Transferred PCP - General 07/13/24 Dea Garcia OD [address] [place] [id number] Optometry 04/13/22
--- OUTSIDE RECORDS SUMMARY | 2024-08-27 16:45 | XMS_ITS | Encounter Summary ---
Author Organization [employer] Address [address] [facility] 7t [place] [address] Care Team Providers Care Party Host Name Role Phone Dea Garcia OD Unavailable Inactive/Transferred Primary Care Provider Unava ilable Reason for Visit * Reason Comments Med Refill Encounter Details Date Type Department Care Team (Late st Contact Info) Description 08/19/2024 Refill [facility] [address] [place] [address] Sharon Malone FNP [address] [place] [address] Allergy, subsequent encounter Social History Tobacco Use Types Packs/Day Years [...] encounter Miscellaneous Notes * Telephone Encounter - Mica Davis MA - 08/19/2024 9:23 AM EDT Inactive/transferred pt documented in this encounter Plan of Treatment Not on file documented as of this encounter Visit Diagnoses Diagnosis Allergy, subsequent encounter documented in this encounter Care Teams Party Host Relationship Specialty Start Date End Date Inactive/Transferred PCP - General 07/13/24 Dea Garcia OD [address] [place] [address] Optometry 04/13/22 documented as of this encounter
--- OUTSIDE RECORDS SUMMARY | 2024-08-27 16:45 | XMS_ITS | Encounter Summary ---
Author Organization [employer] Address [address] [facility] 7t [place] [address] Care Team Providers Care Polo Coach Name Role Phone Dea Garcia OD Unavailable Inactive/Transferred Primary Care Provider Unava ilable Reason for Visit * Reason Comments Med Refill Encounter Details Date Type Department Care Team (Late st Contact Info) Description 07/14/2024 Refill [facility] [address] [place] [address] Sharon Malone FNP [address] [place] [address] Allergy, subsequent encounter Social History Tobacco Use [...] on file documented as of this encounter Plan of Treatment Not on file documented as of this encounter Visit Diagnoses Diagnosis Allergy, subsequent encounter documented in this encounter Care Teams Polo Coach Relationship Specialty Start Date End Date Inactive/Transferred PCP - General 07/13/24 Dea Garcia OD [address] [place] [address] Optometry 04/13/22 documented as of this encounter
--- OUTSIDE RECORDS SUMMARY | 2024-08-27 16:45 | XMS_ITS | Encounter Summary ---
Author Organization [employer] Address [address] [facility] 7t [place] [address] Care Team Providers Care Mink Rancher Name Role Phone Dea Garcia OD Unavailable Sharon Malone Primary Care Provider [phone] Inactive/Transferred Primary Care Provider Unava ilable Reason for Visit * Reason Comments Med Refill Encounter Details Date Type Department Care Team (Late st Contact Info) Description 07/02/2024 Refill [place] [address] [place] [address] Sharon Malone FNP [address] [place] [address] Chronic neck pain Social History Tobacco Use Types Packs/Day Years [...] the past 12 months, has t he [employer], gas, oil or water company threatened to [...] encounter Miscellaneous Notes * Telephone Encounter - Akanksha Campuzano - 07/13/2024 12:46 PM EST PT stated that she has a new PCP and stated that her new PCP was supposed to be filling her meds. * Telephone Encounter - Cecilia Mariscal CNP - 07/02/2024 4:45 PM EST Rx sent, please coordinate routine follow up appt for this pt documented in this encounter Plan of Treatment Not on file documented as of this encounter Visit Diagnoses Diagnosis Chronic neck pain Cervicalgia documented in this encounter Care Teams Mink Rancher Relationship Specialty Start Date End Date Sharon Malone FNP [address] [place] [address] PCP - General Family Medicine 08/03/22 07/12/24 Inactive/Transferred PCP - General 07/13/24 Dea Garcia OD [address] [place] [address] Optometry 04/13/22 documented as of this encounter
--- OUTSIDE RECORDS SUMMARY | 2024-08-27 16:45 | XMS_ITS | Encounter Summary ---
Author Organization [email or web address] Address [address] [facility] 7t [place] [address] Care Team Providers Care Director Of Family Service Center Name Role Phone Dea Garcia OD Unavailable Sharon Malone Primary Care Provider [phone] Inactive/Transferred Primary Care Provider Unava ilable Reason for Visit * Reason Comments Med Refill Encounter Details Date Type Department Care Team (Late st Contact Info) Description 10/29/2023 Refill [facility] [address] [place] [address] Sharon Malone FNP [address] [place] [address] Intractable migraine without status migrainosus, unspecified migraine type Social History Tobacco Use Types Packs/Day Years [...] encounter Miscellaneous Notes * Telephone Encounter - ROMY Gary - 10/30/2023 9:24 AM EDT Sent 10/22. documented in this encounter Plan of Treatment Not on file documented as of this encounter Visit Diagnoses Diagnosis Intractable migraine without status migrainosus, unspecified migraine type documented in this encounter Care Teams Director Of Family Service Center Relationship Specialty Start Date End Date Sharon Malone FNP [address] [place] [address] PCP - General Family Medicine 08/03/22 07/12/24 Inactive/Transferred PCP - General 07/13/24 Dea Garcia OD [address] [place] [address] Optometry 04/13/22 documented as of this encounter
--- OUTSIDE RECORDS SUMMARY | 2024-08-27 16:45 | XMS_ITS | Encounter Summary ---
Author Organization [employer] Address [address] [facility] 7t [place] [address] Care Team Providers Care Cna Caregiver Name Role Phone Dea Garcia OD Unavailable Sharon Malone Primary Care Provider [phone] Inactive/Transferred Primary Care Provider Unava ilable Encounter Details Date Type Department Care Team (Late st Contact Info) Description 06/11/2023 Orders Only [facility] [address] [place] [address] Sharon Malone FNP [address] [place] [address] Social History Tobacco Use Types Packs/Day Years [...] Patient Health Questionnaire-2 Score 0 02/27/2023 Comments Unknown Sex and Gender Information Value Date Recorded Sex Assigned at Female 03/12/2022 10:28 AM EDT Legal Sex Female 10:28 AM EDT Gender Identity Female 03/29/2022 3:43 PM EST Sexual Orientation Straight 02/27/2023 5: 23 PM EDT documented as of this encounter Plan of Treatment Not on file documented as of this encounter Procedures Procedure Name Priority Date/Time Associated Diagnosis Comments XR CHEST 2 VIEWS Routine 06/06/2023 ECG 12-LEAD Routine 06/06/2023 documented in this encounter Results * XR Chest 2 Views (06/06/2023) Anatomical Region Laterality Modality Chest Radiographic Dahiana ging Sharon STANTON IMG XR PROCEDURES Edited Result - Final * ECG 12 lead (06/06/2023) Sharon STANTON ECG ORDERABLES Edited Result - Final documented in this encounter Visit Diagnoses Not on filedocumented in this encounter Care Teams Cna Caregiver Relationship Specialty Start Date End Date Sharon Malone FNP [address] [place] [address] PCP - General Family Medicine 08/03/22 07/12/24 Inactive/Transferred PCP - General 07/13/24 Dea Garcia OD [address] [facility] [place] [address] Optometry 04/13/22 documented as of this encounter
--- OUTSIDE RECORDS SUMMARY | 2024-08-27 16:45 | XMS_ITS | Encounter Summary ---
Author Organization [employer] Address [address] [facility] 7t [place] [address] Care Team Providers Care Plastics Seasoner Operator Name Role Phone Dea Garcia OD Unavailable Sharon Malone Primary Care Provider [phone] Inactive/Transferred Primary Care Provider Unava ilable Reason for Visit * Reason Comments Med Refill Encounter Details Date Type Department Care Team (Late st Contact Info) Description 02/06/2024 Refill [facility] [address] [place] [address] Sharon Malone FNP [address] [place] [address] Social History Tobacco Use Types Packs/Day Years [...] encounter Miscellaneous Notes * Telephone Encounter - Tamiko Cantu LPN - 02/11/2024 11:35 AM EDT Nurse unable to reach patient. * Telephone Encounter - Tamiko Cantu LPN - 02/10/2024 8:45 AM EDT Call placed to patient. LMOM to return call. * Telephone Encounter - Tamiko Cantu LPN - 02/08/2024 9:59 AM EDT My chart message sent to patient * Telephone Encounter - Tamiko Cantu LPN - 02/07/2024 1:25 PM EDT Call placed to patient. LMOM to return call. documented in this encounter Plan of Treatment Not on file documented as of this encounter Visit Diagnoses Not on filedocumented in this encounter Care Teams Plastics Seasoner Operator Relationship Specialty Start Date End Date Sharon Malone FNP [address] [place] [address] PCP - General Family Medicine 08/03/22 07/12/24 Inactive/Transferred PCP - General 07/13/24 Dea Garcia OD [address] [place] [address] Optometry 04/13/22 documented as of this encounter
--- OUTSIDE RECORDS SUMMARY | 2024-08-27 16:45 | XMS_ITS | Encounter Summary ---
Author Organization [employer] Address [address] [facility] 7t [place] [address] Care Team Providers Care Deck Specialist Name Role Phone Dea Garcia OD Unavailable Sharon Malone EMPLOYMENT CLERK Primary Care Provider [phone] Inactive/Transferred Primary Care Provider Unava ilable Reason for Visit * Reason Onset Date Comments lip lesion referral 09/04/2023 Encounter Details Date Type Department Care Team (Late st Contact Info) Description 09/04/2023 Telephone Time [facility] [address] [place] [address] Malika Joaquin RN lip lesion referral Social History Tobacco Use Types Packs/Day Years [...] encounter Miscellaneous Notes * Telephone Encounter - Yoli Cisneros - 09/13/2023 10:16 AM EDT Closed referral * Telephone Encounter - Malika Joaquin RN - 09/12/2023 9:32 AM EDT Pt reports she has appt with oral surgeon September 16. I asked her to call her dentist right away if anything happens and she can't make that appt and to also let us know PRN. She said she would do so. Sending TE to referrals to cancel ENT referral, then close TE if nothing further. * Telephone Encounter - Lisa Swartz LPN - 09/11/2023 11:11 AM EDT Left message for pt to call back. * Telephone Encounter - Lisa Swartz LPN - 09/11/2023 11:10 AM EDT Images from the original note were not included. ROMY Gary to Time Triage Nurses 09/11/23 10:46 AM Please call patient and check in has she been able to see the oral surgeon for the oral lesion? Hasthis been addressed? If so okay to cancel referral to ENT if not please proceed with referral placed by Dr. Samuels. Thanks. -sj * Telephone Encounter - Lisa Swartz LPN - 09/11/2023 11:09 AM EDT Images from the original note were not included. Yoli Cisneros to Sarahi Samuels MD DC 09/05/23 1:14 PM Does patient still need ENT referral if she is being referred by dentist * Telephone Encounter - Malika Joaquin RN - 09/04/2023 12:37 PM EDT I called pt about another matter and she said she saw her dentist yesterday about an abscess and that dentist made an urgent referral to an oral surgeon to address a lip lesion. Pt said her doctor was making a referral for the same lesion. I see a referral from Dr. Samuels to otolargyngology for mouth ulcer on 08/25. Sending TE to referring PCP and referrals. Dr Samuels: does this sound like the lesion your referral was for? documented in this encounter Plan of Treatment Not on file documented as of this encounter Visit Diagnoses Not on filedocumented in this encounter Care Teams Deck Specialist Relationship Specialty Start Date End Date Sharon Malone FNP [address] [place] [address] PCP - General Family Medicine 08/03/22 07/12/24 Inactive/Transferred PCP - General 07/13/24 Dea Garcia OD [address] [place] [address] Optometry 04/13/22 documented as of this encounter
--- OUTSIDE RECORDS SUMMARY | 2024-08-27 16:45 | XMS_ITS | Encounter Summary ---
Author Organization [employer] Address [address] [facility] 7t [place] [address] Care Team Providers Care Oil Rag Washer Name Role Phone Dea Garcia OD Unavailable Sharon Malone Primary Care Provider [phone] Inactive/Transferred Primary Care Provider Unava ilable Encounter Details Date Type Department Care Team (Late st Contact Info) Description 03/12/2023 Orders Only [facility] [address] [place] [address] Sharon Malone FNP [address] [place] [address] Social History Tobacco Use Types Packs/Day Years Used Date Smoking Tobacco: Every Day Cigarettes Passive Smoke Exposure: Current Smokeless Tobacco: Never Comments:Smoking for about 4 0 years Alcohol Use Standard Drinks/Week Comments Yes 0 (1 standard drink = 0.6 oz pur e alcohol) Once in a blue begum Housing Stability Answer Date Recorded What is [...] things needed for daily living? No 02/27/2023 Utilities Answer Date Recorded In the past [...] on filedocumented in this encounter Care Teams Oil Rag Washer Relationship Specialty Start Date End Date Sharon Malone FNP [address] [place] [address] PCP - General Family Medicine 08/03/22 07/12/24 Inactive/Transferred PCP - General 07/13/24 Dea Garcia OD [address] [place] [address] Optometry 04/13/22 documented as of this encounter
--- OUTSIDE RECORDS SUMMARY | 2024-08-27 16:45 | XMS_ITS | Encounter Summary ---
Author Organization [employer] Address [address] [facility] 7t [place] [address] Care Team Providers Care Dairy Farm Supervisor Name Role Phone Dea Garcia OD Unavailable Sharon Malone Primary Care Provider [phone] Inactive/Transferred Primary Care Provider Unava ilable Encounter Details Date Type Department Care Team (Late st Contact Info) Description 06/20/2023 Orders Only [facility] [address] [place] [address] Sharon Malone FNP [address] [place] [address] Elevated brain natriuretic peptide (BNP) level Social History Tobacco Use Types Packs/Day Years [...] Procedure Name Priority Date/Time Associated Diagnosis Comments TRANSTHORACIC ECHO (TTE) COMPLETE STAT 06/18/2023 Elevated brain natriuretic peptide (BNP) level documented in this encounter Results * Transthoracic Echo (TTE) Complete (06/18/2023) Sharon STANTON CV ECHO PROCEDURES Final Result documented in this encounter Visit Diagnoses Diagnosis Elevated brain natriuretic peptide (BNP) level documented in this encounter Care Teams Dairy Farm Supervisor Relationship Specialty Start Date End Date Sharon Malone FNP [address] [place] [address] PCP - General Family Medicine 08/03/22 07/12/24 Inactive/Transferred PCP - General 07/13/24 Dea Garcia OD [address] [place] [address] Optometry 04/13/22 documented as of this encounter
--- OUTSIDE RECORDS SUMMARY | 2024-08-27 16:46 | XMS_ITS | Encounter Summary ---
Author Organization [employer] Address [address] [facility] 7t [place] [address] Care Team Providers Care Medical Device Sales Representative Name Role Phone Dea Garcia OD Unavailable Sharon Malone Primary Care Provider [phone] Inactive/Transferred Primary Care Provider Unava ilable Reason for Visit * Reason Comments Med Refill Encounter Details Date Type Department Care Team (Late st Contact Info) Description 10/25/2023 Refill [place] [facility] [address] [place] [address] Sharon Malone FNP [address] [place] [address] Chronic neck pain Social History Tobacco Use [...] encounter Miscellaneous Notes * Telephone Encounter - Cheryl Nascimento CMA - 10/25/2023 3:01 PM EDT Last filed on 10/14/23 documented in this encounter Plan of Treatment Not on file documented as of this encounter Visit Diagnoses Diagnosis Chronic neck pain Cervicalgia documented in this encounter Care Teams Medical Device Sales Representative Relationship Specialty Start Date End Date [place] Malone FNP [address] [place] [address] PCP - General Family Medicine 08/03/22 07/12/24 Inactive/Transferred PCP - General 07/13/24 Dea Garcia OD [address] [place] [address] Optometry 04/13/22 documented as of this encounter
--- OUTSIDE RECORDS SUMMARY | 2024-08-27 16:46 | XMS_ITS | Encounter Summary ---
Author Organization [employer] Address 75 [facility] 7t [place] [address] Care Team Providers Care Cash Teller Name Role Phone Dea Garcia OD Unavailable [place] Malone Primary Care Provider [phone] Inactive/Transferred Primary Care Provider Unava ilable Reason for Visit * Reason Comments Med Refill Encounter Details Date Type Department Care Team (Late st Contact Info) Description 06/19/2023 Refill [place] [facility] [address] [place] [address] [place] Malone FNP [address] [place] [address] Intractable migraine without status migrainosus, unspecified migraine [...] PM EDT documented as of this encounter Miscellaneous Notes * Telephone Encounter - Madhuri Lin RN - 06/20/2023 8:59 AM EST Call placed to patient to advise that we do not yet have echocardiogram results to review at appt today. Left VM. documented in this encounter Plan of Treatment Not on file documented as of this encounter Visit Diagnoses Diagnosis Intractable migraine without status migrainosus, unspecified migraine type documented in this encounter Care Teams Cash Teller Relationship Specialty Start Date End Date [place] Malone FNP [address] [place] [address] PCP - General Family Medicine 08/03/22 07/12/24 Inactive/Transferred PCP - General 07/13/24 Dea Garcia OD [address] [place] [address] Optometry 04/13/22 documented as of this encounter
--- OUTSIDE RECORDS SUMMARY | 2024-08-27 16:46 | XMS_ITS | Encounter Summary ---
Author Organization [employer] Address [address] [facility] 7t [place] [address] Care Team Providers Care Retail Mortgage Banker Name Role Phone Dea Garcia OD Unavailable [place] Malone Primary Care Provider [phone] Inactive/Transferred Primary Care Provider Unava ilable Encounter Details Date Type Department Care Team (Late st Contact Info) Description 10/16/2023 Orders Only [place] [facility] [address] [place] [address] Evelyn Cedeno FNP Gastroesophageal reflux disease, unspecified whether esophagitis present; JUAN positive Social History Tobacco Use Types Packs/Day Years [...] Procedure Name Priority Date/Time Associated Diagnosis Comments AMB REFERRAL TO GASTROENTEROLOGY Routine 08/02/2023 Gastroesophageal reflux disease, unspecified whether esophagitis present documented in this encounter Results * Referral to Gastroenterology (08/02/2023) Evelyn BERUMENP OUTPATIENT REFERRAL ORDERABLES Final Result documented in this encounter Visit Diagnoses Diagnosis Gastroesophageal reflux disease, unspecified whether esophagitis present JUAN positive documented in this encounter Care Teams Retail Mortgage Banker Relationship Specialty Start Date End Date [place] Malone FNP 73 [place] [address] PCP - General Family Medicine 08/03/22 07/12/24 Inactive/Transferred PCP - General 07/13/24 Dea Garcia OD 73 [place] [address] Optometry 04/13/22 documented as of this encounter
--- OUTSIDE RECORDS SUMMARY | 2024-08-27 16:46 | XMS_ITS | Encounter Summary ---
Author Organization [employer] Address 75 [facility] 7t [place] [address] Care Team Providers Care Master [employer] Y[employer] Name Role Phone Dea Garcia OD Unavailable [place] Malone Primary Care Provider [phone] Inactive/Transferred Primary Care Provider Unava ilable Reason for Visit * Reason Comments Med Refill Encounter Details Date Type Department Care Team (Late st Contact Info) Description 09/19/2023 Refill [place] [facility] [address] [place] [address] [place] Malone FNP [address] [place] [address] Chronic neck pain Social History Tobacco Use [...] the past 12 months, has t he [employer] gas, oil or water company threatened to [...] encounter Miscellaneous Notes * Telephone Encounter - Danilo Gar CMA - 09/19/2023 8:19 AM EDT This was sent successfully 09/06/2023, Pt requesting too early. cyclobenzaprine (Flexeril) 5 MG tablet Sig: Take 1 tablet (5 mg) by mouth if needed at bedtime for muscle spasms. Sent to pharmacy as: Cyclobenzaprine HCl 5 MG Oral Tablet (Flexeril) Class: Normal Route: Oral E-Prescribing Status: Receipt confirmed by pharmacy (09/06/2023 6:18 PM EDT) documented in this encounter Plan of Treatment Not on file documented as of this encounter Visit Diagnoses Diagnosis Chronic neck pain Cervicalgia documented in this encounter Care Teams Master [employer] Relationship Specialty Start Date End Date [place] Malone FNP [address] [place] [address] PCP - General Family Medicine 08/03/22 07/12/24 Inactive/Transferred PCP - General 07/13/24 Dea Garcia OD 73 [place] [address] Optometry 04/13/22 documented as of this encounter
--- OUTSIDE RECORDS SUMMARY | 2024-08-27 16:46 | XMS_ITS | Encounter Summary ---
Author Organization [employer] Address [address] [facility] 7t [place] [address] Care Team Providers Care Manager Psychology Name Role Phone Dea Garcia OD Unavailable [place] Malone Primary Care Provider [phone] Inactive/Transferred Primary Care Provider Unava ilable Reason for Visit * Reason Comments Med Refill Encounter Details Date Type Department Care Team (Late st Contact Info) Description 09/16/2023 Refill [place] [facility] [address] [place] [address] [place] Malone FNP [address] [place] [address] Social History Tobacco Use Types Packs/Day Years [...] * Telephone Encounter - ROMY Gary - 09/16/2023 3:41 PM EDT This request is for losartan not Loperamide * Telephone Encounter - Malika Joaquin RN - 09/16/2023 1:46 PM EDT Loperamide refill. Chart shows 30 tabs rx'd 08/25 (Bossie) and 240 tabs rx'd 07/24 (Maxx). Pt states she takes 2 tabs QID every day to control diarrhea and without it she does not have any appetite. State chronic diarrhea is due to her rectal prolapse. She has tried FU with MD Jovel, GI spec, but first available ppt is January 06. Says he will not rx loperamide due to her having missed an appointment with him. I do not see loperamide on pt's current med list, though most recent refill was 08/25. loperamide (Imodium A-D) 2 MG tablet [[id number]] Order Details Dose: 2-4 mg Route: Oral Frequency: 4 times daily PRN for diarrhea Dispense Quantity: 30 tablet Refills: 0 Sig: Take 1-2 tablets (2-4 mg) by mouth if needed in the morning, at noon, in the evening, and at bedtime for diarrhea for up to 10 days. documented in this encounter Plan of Treatment Not on file documented as of this encounter Visit Diagnoses Not on filedocumented in this encounter Care Teams Manager Psychology Relationship Specialty Start Date End Date [place] Malone FNP [address] [place] [address] PCP - General Family Medicine 08/03/22 07/12/24 Inactive/Transferred PCP - General 07/13/24 Dea Garcia OD 73 [place] [address] Optometry 04/13/22 documented as of this encounter
--- OUTSIDE RECORDS SUMMARY | 2024-08-27 16:46 | XMS_ITS | Encounter Summary ---
Author Organization [employer] Address [address] [facility] 7t [place] [address] Care Team Providers Care Mold Worker Name Role Phone Dea Garcia OD Unavailable [place] Malone TEAR DOWN WORKER Primary Care Provider [phone] Inactive/Transferred Primary Care Provider Unava ilable Reason for Visit * Reason Onset Date Comments Med Refill 09/27/2023 Encounter Details Date Type Department Care Team (Late st Contact Info) Description 09/27/2023 Refill [place] [facility] [address] [place] [address] Sarahi Samuels MD 70 [place] [address] Intractable migraine without status migrainosus, unspecified migraine [...] type documented in this encounter Care Teams Mold Worker Relationship Specialty Start Date End Date [place] Malone FNP 73 [facility] [place] [address] PCP - General Family Medicine 08/03/22 07/12/24 Inactive/Transferred PCP - General 07/13/24 Dea Garcia OD 73 [facility] [place] [address] Optometry 04/13/22 documented as of this encounter
--- OUTSIDE RECORDS SUMMARY | 2024-08-27 16:46 | XMS_ITS | Encounter Summary ---
Author Organization [employer] Address 75 [facility] 7t [place] [address] Care Team Providers Care Bulk Gas Specialist Name Role Phone Dea Garcia OD Unavailable [place] Malone SAMPLE EXAMINER Primary Care Provider [phone] Inactive/Transferred Primary Care Provider Unava ilable Reason for Visit * Reason Onset Date Comments Med Refill 09/30/2023 Encounter Details Date Type Department Care Team (Late st Contact Info) Description 09/30/2023 Refill [place] [facility] [address] [place] [address] Sarahi Samuels MD [address] [place] [address] Intractable migraine without status migrainosus, unspecified migraine [...] Miscellaneous Notes * Telephone Encounter - Cheryl Nascimento, FRANCHESCA - 09/30/2023 12:25 PM EDT Duplicate request another TE pending providers approval documented in this encounter Plan of Treatment Not on file documented as of this encounter Visit Diagnoses Diagnosis Intractable migraine without status migrainosus, unspecified migraine type documented in this encounter Care Teams Bulk Gas Specialist Relationship Specialty Start Date End Date [place] Malone FNP [address] [place] [address] PCP - General Family Medicine 08/03/22 07/12/24 Inactive/Transferred PCP - General 07/13/24 Dea Garcia OD 73 [place] [address] Optometry 04/13/22 documented as of this encounter
--- OUTSIDE RECORDS SUMMARY | 2024-08-27 16:46 | XMS_ITS | Encounter Summary ---
Author Organization [employer] Address 75 [facility] 7t [place] [address] Care Team Providers Care Clip Baker Name Role Phone Dea Garcia OD Unavailable [place] Malone Primary Care Provider [phone] Inactive/Transferred Primary Care Provider Unava ilable Reason for Visit * Reason Onset Date Comments Med Refill 09/11/2023 Encounter Details Date Type Department Care Team (Late st Contact Info) Description 09/11/2023 Refill [place] [facility] [address] [place] [address] Evelyn Cedeno FNP Chronic neck pain Social History Tobacco Use [...] * Telephone Encounter - ROMY Gary - 09/13/2023 4:22 PM EDT Duplicate * Telephone Encounter - Urvashi Cooley - 09/13/2023 1:40 PM EDT Last OV: 08/17/2023 Next OV: 10/29/23 documented in this encounter Plan of Treatment Not on file documented as of this encounter Visit Diagnoses Diagnosis Chronic neck pain Cervicalgia documented in this encounter Care Teams Clip Baker Relationship Specialty Start Date End Date [place] Malone FNP [address] [place] [address] PCP - General Family Medicine 08/03/22 07/12/24 Inactive/Transferred PCP - General 07/13/24 Dea Garcia OD 73 [facility] [place] [address] Optometry 04/13/22 documented as of this encounter
--- OUTSIDE RECORDS SUMMARY | 2024-08-27 16:46 | XMS_ITS | Encounter Summary ---
Author Organization [employer] Address 75 [facility] 7t [place] [address] Care Team Providers Care Service Engineer Name Role Phone Dea Garcia OD Unavailable [place] Malone HYDROTREATER OPERATOR Primary Care Provider [phone] Inactive/Transferred Primary Care Provider Unava ilable Encounter Details Date Type Department Care Team (Late st Contact Info) Description 10/22/2023 Orders Only [place] [facility] [address] [place] [address] Shi Damian, DO [address] [place] [address] Dizziness; Essential hypertension Social History Tobacco Use Types Packs/Day Years [...] Procedure Name Priority Date/Time Associated Diagnosis Comments ZIO PATCH - 14 DAY Routine 08/07/2023 Dizziness Essential hypertension documented in this encounter Results * ZIO Patch - 14 Day Placed During Visit (08/07/2023) Shi Damian DO [facility] PROCEDURES Final Result documented in this encounter Visit Diagnoses Diagnosis Dizziness Dizziness and giddiness Essential hypertension Unspecified essential hypertension documented in this encounter Care Teams Service Engineer Relationship Specialty Start Date End Date [place] Malone FNP [address] [place] [address] PCP - General Family Medicine 08/03/22 07/12/24 Inactive/Transferred PCP - General 07/13/24 Dea Garcia OD [address] [place] [address] Optometry 04/13/22 documented as of this encounter
--- OUTSIDE RECORDS SUMMARY | 2024-08-27 16:46 | XMS_ITS | Encounter Summary ---
Author Organization [employer] Address [address] [facility] 7t [place] [address] Care Team Providers Care Cinetechnician Name Role Phone Dea Garcia OD Unavailable [place] Malone Primary Care Provider [phone] Inactive/Transferred Primary Care Provider Unava ilable Reason for Visit * Reason Comments Med Refill Encounter Details Date Type Department Care Team (Late st Contact Info) Description 10/14/2023 Refill [place] [facility] [address] [place] [address] [place] Malone FNP [address] [place] [address] Chronic neck pain; Diarrhea of presumed infectious origin Social History Tobacco Use Types Packs/Day Years [...] Visit Diagnoses Diagnosis Chronic neck pain Cervicalgia Diarrhea of presumed infectious origin documented in this encounter Care Teams Cinetechnician Relationship Specialty Start Date End Date [place] Malone FNP [address] [place] [address] PCP - General Family Medicine 08/03/22 07/12/24 Inactive/Transferred PCP - General 07/13/24 Dea Garcia OD [address] [place] [address] Optometry 04/13/22 documented as of this encounter
== END 2024-08-27 13:43 | disposition home or self-care (01) ==
LOC: HO.NEURO 13:42
DX: G56.11 Other lesions of median nerve, right upper limb (principal)
CPT/HCPCS: 95860; 95911

== ENCOUNTER → 2024-08-27 13:48 | Outpatient (BNV) | payer OTHER, SELFPAY | PROVIDERS: Visit Provider Physical Medicine & Rehabilitation | DX: G56.03 Carpal tunnel syndrome, bilateral upper limbs (principal) | CPT/HCPCS: 95911 ==